=== PATIENT | male | born 1960 | race Caucasian/White ===

== ENCOUNTER → 2016-12-07 | Outpatient (CLI) | payer BC | LOC: BRMIMAGING 10:03 | PROVIDERS: ATTEND Internal Medicine | DX: M19.071 Primary osteoarthritis, right ankle and foot (principal); M19.072 Primary osteoarthritis, left ankle and foot | CPT/HCPCS: 73630-PO ==

== ENCOUNTER → 2017-01-30 | Outpatient (CLI) | payer OTHER | LOC: BRMIMAGING 14:04 | PROVIDERS: ATTEND Internal Medicine | DX: M17.0 Bilateral primary osteoarthritis of knee (principal) | CPT/HCPCS: 73521-PO; 73562-PO ==